=== PATIENT | female | born 1975 | race Caucasian/White ===

== ENCOUNTER 2018-12-21 19:21 | Emergency (ER) | payer OTHER ==
[~2018-12-21] VITALS: Ht 172.7 cm; Wt 77.2 kg
[2018-12-21] MEDS ORDERED: ondansetron/PF 4mg/2ml inj IV ONE (19:45)
[2018-12-21] MEDS ORDERED: normal saline 1000ML IV soln IVB ONE (19:45)
[2018-12-21] MEDS ORDERED: glycopyrrolate 0.2mg/ml inj IV ONE (19:45)
[2018-12-21 19:56] LABS: BASOPHILS # (AUTO) 0.1 X10'3 (0-0.2); BASOPHILS % (AUTO) 1.2 % (0-1); EOSINOPHILS # (AUTO) 0.1 X10'3 (0-0.9); HEMATOCRIT 38.9 % (35.0-45.0); HEMOGLOBIN 13.2 g/dl (12.0-16.0); LYMPHOCYTES # (AUTO) 1.5 X10'3 (1.1-4.8); LYMPHOCYTES % (AUTO) 32.3 % (21-51); MEAN CORPUSCULAR HEMOGLOBIN 29.7 PG (27.0-31.0); MEAN CORPUSCULAR HGB CONC 33.8 g/dL (33.0-36.5); MEAN CORPUSCULAR VOLUME 87.7 FL (78-98); MEAN PLATELET VOLUME 9.1 FL (7.4-10.4); MONOCYTES # (AUTO) 0.5 X10'3 (0-0.9); MONOCYTES % (AUTO) 10.2 % (2-12); NEUTROPHILS # (AUTO) 2.5 X10'3 (1.8-7.7); NEUTROPHILS % (AUTO) 54.3 % (42-75); PLATELET COUNT 200 X10'3 (140-440); RED BLOOD COUNT 4.44 X10'6 (4.20-5.60); WHITE BLOOD COUNT 4.6 X10'3 (4.5-11.0)
[2018-12-21 20:12] LABS: ALANINE AMINOTRANSFERASE 27 U/L (12-78); ALBUMIN 3.9 G/DL (3.4-5.0); ALBUMIN/GLOBULIN RATIO 1.3 (1.1-1.5); ALKALINE PHOSPHATASE 59 IU/L (46-116); ANION GAP 13 (8-16); ASPARTATE AMINO TRANSFERASE 18 U/L (10-37); BILIRUBIN,TOTAL 0.3 MG/DL (0.1-1.0); BLOOD UREA NITROGEN 13 MG/DL (7-18); BUN/CREATININE RATIO 11.5 (6.6-38.0); CALCIUM 8.7 MG/DL (8.5-10.1); CHLORIDE 108 MMOL/L (99-107); CREATININE 1.13 MG/DL (0.40-0.90); GLUCOSE 123 MG/DL (70-104); POTASSIUM 3.3 MMOL/L (3.5-5.1); SODIUM 143 MMOL/L (135-145); TOTAL CARBON DIOXIDE 22.3 MMOL/L (24-32); TOTAL PROTEIN 6.9 G/DL (6.4-8.2); eGFR 53 ML/MIN
[2018-12-21] MEDS ORDERED: meclizine 12.5mg tablet PO ONE (20:30)
[2018-12-21] MEDS ORDERED: MECL-111 PO (21:08)
[2018-12-21] MEDS ORDERED: ONDA4TAB12 PO (21:08)
--- NOTE | 2018-12-21 21:08 | NUR ---
pt reports improvement in her nausea but dizzyness remains severe, no change since meds given. family at bedside. still need urine sample. ns bolus just finished.
[2018-12-21] MEDS ORDERED: LORazepam 2 mg/ml vial IV ONE (21:10)
--- NOTE | 2018-12-21 21:30 | NUR ---
DR. CASEYFS TALKING WITH PT AND FAMILY. [facility] MEDS ORDERED.
[2018-12-21] MEDS ORDERED: LORA1TAB PO (21:41)
[2018-12-21 22:19] VITALS: BP 102/47
== END 2018-12-21 22:25 | disposition home or self-care (01) ==
LOC: ER 19:22
DX: R42 Dizziness and giddiness (principal); R11.2 Nausea with vomiting, unspecified; K21.9 Gastro-esophageal reflux disease without esophagitis; Z88.2 Allergy status to sulfonamides
CPT/HCPCS: 36415; 80053; 85025; 96361; 96374; 96375; 99283; J2060; J2405; J7030; J8597; J3490